=== PATIENT | male | born 1955 ===

== ENCOUNTER 2018-03-05 21:38 | Emergency (ER) | payer MEDICAID, OTHER ==
[2018-03-05 21:47] VITALS: RESP 16
[2018-03-05] MEDS ORDERED: Sodium Chloride 0.9% 1,000 ML IV ONE (22:01)
--- NOTE | 2018-03-05 22:01 | C.PDOC ---
History Of Present Illness Patient presents to the ER with a complaint of sudden onset sharp stabbing RLQ pain that began approximately 3 hours ago, associated with nausea and one episode of vomiting. Denies fever or chills. Time Seen by Provider: 03/05/18 22:01 Chief Complaint (Nursing): Abdominal Pain History Per: Patient History/Exam Limitations: no limitations Onset/Duration Of Symptoms: Hrs, Sudden Onset Current Symptoms Are (Timing): Still Present Severity: Moderate Pain Scale Rating Of: 4 Location Of Pain/Discomfort: RLQ Radiation Of Pain To:: None Quality Of Discomfort: Sharp, Stabbing Associated Symptoms: Nausea, Vomiting. denies: Fever, Chills Exacerbating Factors: None Alleviating Factors: None Recent travel outside of the [place]: No Past Medical History Reviewed: Historical Data, Nursing Documentation, Vital Signs Vital Signs: Last Vital Signs Temp 97.5 F L 03/05/18 21:44 Pulse 56 L 03/05/18 21:44 Resp 16 03/05/18 21:44 BP 143/82 03/05/18 21:44 Pulse Ox 98 03/05/18 23:10 Family History: States: No Known Family Hx - Social History Hx Alcohol Use: No Hx Substance Use: No Review Of Systems Constitutional: Negative for: Fever, Chills Cardiovascular: Negative for: Chest Pain, Palpitations Respiratory: Negative for: Cough, Shortness of Breath Gastrointestinal: Positive for: Nausea, Vomiting, Abdominal Pain Genitourinary: Positive for: Hematuria Skin: Negative for: Rash Neurological: Negative for: Weakness, Numbness Psych: Negative for: Anxiety Physical Exam - Physical Exam Appears: Non-toxic, In Acute Distress Skin: Warm, Dry Head: Normacephalic Oral Mucosa: Moist Chest: Symmetrical, No Tenderness Cardiovascular: Rhythm Regular Respiratory: No Rales, No Rhonchi, No Wheezing Gastrointestinal/Abdominal: Soft, Tenderness (RLQ), No Guarding, No Rebound Back: CVA Tenderness (right) Male Genital: Normal Inspection Extremity: Normal ROM Neurological/Psych: Oriented x3 Gait: Steady ED Course And Treatment - Laboratory Results Result Diagrams: 03/05/18 22:09 03/05/18 22:09 ECG: Interpreted By Me, Viewed By Me ECG Rhythm: Sinus Rhythm (71), Nonspecific Changes O2 Sat by Pulse Oximetry: 98 (room air) Pulse Ox Interpretation: Normal Progress Note: Blood work and urinalysis ordered. Morphine, protonix, zofran, and IV fluids administered. Reevaluation Time: 23:41 Reassessment Condition: Improved Disposition Counseled Patient/Family Regarding: Studies Performed, Diagnosis, Need For Followup, Rx Given - Disposition Referrals: Everett Centeno MD [Medical Doctor] - Disposition: HOME/ ROUTINE Disposition Time: 22:01 Condition: FAIR Additional Instructions: Please follow up with urologist Prescriptions: Ciprofloxacin [Cipro] 1 tab PO BID #14 tab Naproxen [Naprosyn] 1 tab PO BID PRN #25 tab PRN Reason: Pain Ondansetron ODT [Zofran ODT] 1 odt PO BID PRN #10 odt PRN Reason: Nausea/Vomiting Instructions: Renal Colic (DC), Kidney Stones (DC) Forms: [employer] ([place] Islander) Print Language: BULGARIAN - Clinical Impression Clinical Impression: Renal colic on right side, Kidney stone on right side, Hydronephrosis - Scribe Statement The provider has reviewed the documentation as recorded by the Scribmatt Shah All medical record entries made by the Tomibmatt were at my direction and personally dictated by me. I have reviewed the chart and agree that the record accurately reflects my personal performance of the history, physical exam, medical decision making, and the department course for this patient. I have also personally directed, reviewed, and agree with the discharge instructions and disposition.
[2018-03-05] MEDS ORDERED: Sodium Chloride 0.9% 1,000 ML ONE (22:10)
[2018-03-05 22:16] LABS: BASO % 0.4 % (0.0-2.0); EOS % 0.4 % (0.0-4.0); HEMOGLOBIN 14.7 g/dL (12.0-18.0); LYMPH # 2.4 K/uL (1.0-4.3); LYMPH % 22.1 % (20.0-40.0); MEAN CELL VOLUME 86.9 fL (80.0-94.0); MEAN CORPUSCULAR HEMOGLOBIN 29.7 pg (27.0-31.0); MEAN CORPUSCULAR HGB CONC 34.2 g/dL (33.0-37.0); MEAN PLATELET VOLUME 9.2 fL (7.2-11.7); MONO # 0.7 K/uL (0.0-0.8); MONO % 6.9 % (0.0-10.0); NEUT # 7.5 K/uL (1.8-7.0); NEUT % 70.2 % (50.0-75.0); RBC 4.95 Mil/uL (4.40-5.90); RED CELL DISTRIBUTION WIDTH 13.4 % (11.5-14.5); WHITE BLOOD COUNT 10.7 K/uL (4.8-10.8)
[2018-03-05 22:31] LABS: ALB/GLOB RATIO 1.3 (1.0-2.1); ALBUMIN 3.9 g/dL (3.5-5.0); ALT/SGPT 26 U/L (21-72); AST/SGOT 27 U/L (17-59); BLOOD UREA NITROGEN 16 mg/dL (9-20); GFR NON-AFRICAN AMERICAN > 60; INR 1.3; LIPASE 108 U/L (23-300); PROTHROMBIN TIME 13.8 SECONDS (9.7-12.2)
[2018-03-05 22:54] LABS: VENOUS BLOOD GAS BASE EXCESS -1.2 mmol/L (0.0-2.0); VENOUS BLOOD GAS PCO2 39 mmHg (40-60); VENOUS BLOOD GAS PO2 24 mm/Hg (30-55); VENOUS BLOOD PH 7.39 (7.32-7.43)
[2018-03-05] MEDS ORDERED: Iodixanol 320 MG/ML 100 ML BOTTLE IV ONE (22:55)
[2018-03-05 23:06] LABS: SQUAMOUS EPITHIAL 2 /hpf (0-5); URINE BACTERIA OCC (<OCC); URINE BILIRUBIN NEGATIVE (NEGATIVE); URINE BLOOD 3+ (NEGATIVE); URINE CALCIUM OXALATE CRYSTALS OCC /hpf (<OCC); URINE CLARITY Hazy (Clear); URINE COLOR Yellow (YELLOW); URINE GLUCOSE (UA) NORMAL (Normal); URINE LEUKOCYTE ESTERASE 1+ Leu/uL (Negative); URINE PROTEIN 1+ mg/dL (NEGATIVE)
[2018-03-05] MEDS ORDERED: cefTRIAXone 1 gm 1 GM/100 ML BAG IVPB ONE (23:53)
[2018-03-06 00:59] VITALS: BP 157/85; PULSE 61; TEMP 98.8; O2SAT 97
--- NOTE | 2018-03-06 08:23 | CT ---
Date of service: 03/05/2018 PROCEDURE: CT Abdomen and Pelvis with intravenous contrast HISTORY: Right lower quadrant abdominal pain COMPARISON: None. TECHNIQUE: Multiple contiguous axial images were performed through the abdomen and pelvis with the use of intravenous contrast. Subsequently, sagittal and coronal reformatted images were obtained. Radiation dose: Total exam DLP = 376 mGy-cm. This CT exam was performed using one or more of the following dose reduction techniques: Automated exposure control, adjustment of the mA and/or kV according to patient size, and/or use of iterative reconstruction technique. FINDINGS: LOWER THORAX: Four millimeter pulmonary nodule within the left lower lobe of the lung. 3-6 month interval follow-up may be helpful if clinically indicated. LIVER: Fatty infiltration of the liver. GALLBLADDER AND BILE DUCTS: Unremarkable. PANCREAS: Unremarkable. No gross lesion or ductal dilatation. SPLEEN: Unremarkable. ADRENALS: Unremarkable. No mass. KIDNEYS AND URETERS: 3 millimeter calculus noted at the proximal right ureter producing mild hydroureteronephrosis with perinephric stranding. VASCULATURE: Unremarkable. No aortic aneurysm. BOWEL: Thick walled fluid-filled duodenum and loops of jejunum compatible with enteritis. Infectious and inflammatory etiologies are considered. Consider consultation with GI service and follow-up with upper endoscopy and colonoscopy. Small hiatal hernia is noted. APPENDIX: No findings to suggest acute appendicitis. PERITONEUM: Unremarkable. No free fluid. No free air. LYMPH NODES: Unremarkable. No enlarged lymph nodes. BLADDER: Unremarkable. REPRODUCTIVE: Moderately enlarged prostate gland containing calcification. Please correlate with PSA levels. BONES: Degenerative changes in the spine. OTHER FINDINGS: None. IMPRESSION: 3 millimeter calculus noted at the proximal right ureter producing mild hydroureteronephrosis with perinephric fat stranding. Enteritis. Infectious and inflammatory etiologies are considered. Consider consultation with GI service and follow-up with upper endoscopy. Fatty infiltration of the liver. Small hiatal hernia. Prostate gland is moderately enlarged and contains calcifications. Please correlate with PSA levels. Four millimeter pulmonary nodule within the left lower lobe of the lung. 3-6 month interval follow-up may be helpful if clinically indicated. These findings were preliminarily reported on 03/05/2018 at 11:[address] Kd Wilhelm from [employer].
--- NOTE | 2018-03-06 18:21 | CARD ---
APPROVED REPORT Date of service: 03/05/2018 EKG Measurement Heart [id number] <Conclusion> Normal sinus rhythm Normal ECG
== END 2018-03-06 01:00 | disposition home or self-care (01) ==
LOC: C.ER 21:38
DX: N13.2 Hydronephrosis with renal and ureteral calculous obstruction (principal)
CPT/HCPCS: 74177; 80053; 81001; 82803; 83690; 85025; 85610; 85730; 93005; 96361; 96365; 96375; 99284; C9113; J0696; J2270; J2405; J2765; J7030; Q9967